=== PATIENT | male | born 1965 | race Caucasian/White ===

== ENCOUNTER → 2020-08-31 10:34 | Outpatient (BNVA) | payer MEDICAID, SELFPAY | PROVIDERS: Visit Provider Nurse Practitioner | DX: S82.852A Displaced trimalleolar fracture of left lower leg, initial encounter for closed fracture (principal); X58.XXXA Exposure to other specified factors, initial encounter; Z98.890 Other specified postprocedural states | CPT/HCPCS: 73610 ==

== ENCOUNTER → 2020-09-06 11:53 | Outpatient (BNVA) | payer MEDICAID, SELFPAY | PROVIDERS: Visit Provider Specialist | DX: S82.899A Other fracture of unspecified lower leg, initial encounter for closed fracture (principal); S82.892A Other fracture of left lower leg, initial encounter for closed fracture; S82.832A Other fracture of upper and lower end of left fibula, initial encounter for closed fracture | CPT/HCPCS: 73610; 87635 ==

== ENCOUNTER 2020-09-07 06:03 | Day surgery (SDC) | payer MEDICAID, SELFPAY ==
[2020-09-06 17:47] VITALS: BMI 30.8
[2020-09-07] VITALS (14 sets, daily range): BP systolic 132–188; BP diastolic 65–113; PULSE 67–99; RESP 12–20; TEMP 36–36.2; O2SAT 93–99
--- NOTE | 2020-09-07 | XR_ITS ---
WS: [id number] C-ARM RADIOGRAPHS LEFT ANKLE; 4 IMAGES HISTORY: ORIF Left Ankle COMPARISON: 09/06/2020 Intraoperative plate and screw fixation distal fibular fracture in good position and alignment. Ankle mortise appears normal on the single AP projection. XR/XR ankle LT 2V 46518 IMPRESSION: Intraoperative plate and screw fixation distal fibular fracture.
--- NOTE | 2020-09-07 | SCC_ITS ---
Procedure Done: Open reduction internal fixation left trimalleolar ankle fracture 67.8 seconds of fluoroscopic guidance, for a cumulative dose of 2.01 mGy, was provided to Dr. Burger by the radiology department. C-arm images of the LEFT ankle were saved for the patient's permanent record. [facility]
[2020-09-07] MEDS: CELEcoxib 200 mg Capsule 400 MG PO (06:20)
--- NOTE | 2020-09-07 06:32 | ANES.PREANE2 ---
Pre-Anesthetic Assessment Pre-Anesthetic Assessment: Height/Weight: Height 1.78 m Weight 97.522 kg Temp Pulse Resp BP Pulse Ox 96.8 F L 99 18 188/113 99 09/07/20 06:19 09/07/20 06:19 09/07/20 06:19 09/07/20 06:19 09/07/20 06:19 Preop Diagnosis: Left trimalleolar ankle fracture Proposed Procedure: Operation Date: 09/07/20 08:00 Proposed Procedures p ORIF trimallelor fracture left Ankle 36214 S82.853A(Left) - Alicia Burger MD Familial anesthetic complications: None Was Beta Moreno taken within 24 hours: N/A Last intake: Intake Last Liquid Date 09/06/20 Last Liquid Time 18:00 Last Solid Date 09/06/20 Last Solid Time 18:00 Social: Social History: No alcohol and No tobacco Exam: Pre-Anes Outpt Exam: alert, oriented x 3, clear to auscultation bilaterally and regular rate & rhythm Airway: Cervical ROM: WNL MP: 4 Dentition: Other (missing) Anesthetic Plan: ASA status: 1 Anesthesia: General and Regional (specify below) Risk of > 500 ml blood loss (7ml/kg in children): No PFSH Anesthesia PFSH: Social History Smoking and tobacco status: former smoker Data Anesthesia Cardiac Studies: No Data to Display
[2020-09-07] MEDS: sodium chloride 0.9% 1,000 ML 30 ML IV (06:40)
[2020-09-07 06:51] LABS: Basophils # 0.1 10^3/uL (0.0-0.1); Eosinophils # 0.2 10^3/uL (0.0-0.8); Eosinophils % 2.2 %; Hematocrit 45.8 % (42.0-52.0); Hemoglobin 14.8 g/dL (11.7-16.6); Lymphocytes % 25.3 %; Mean Corpuscular HGB Conc 32.3 g/dL (30.0-36.0); Mean Corpuscular Hemoglobin 28.8 pg (28.0-34.0); Mean Corpuscular Volume 89.1 fL (80-94); Mean Platelet Volume 8.3 fL (7.4-10.4); Monocytes # 0.6 10^3/uL (0.2-0.9); Monocytes % 6.8 %; Neutrophils # 5.19 10^3/uL (1.8-7.7); Neutrophils % 64.3 %; Nucleated Red Blood Cells % 0 %; Platelet Count 236 10^3/cmm (130-400); Red Blood Count 5.14 10^6/uL (4.1-5.3); White Blood Count 8.1 10^3/uL (4.0-10.0)
--- NOTE | 2020-09-07 06:54 | W.PM.OPSUD ---
Surgery/Procedure H&P Update DATE OF PROCEDURE: September 07, 2020 DATE H&P PERFORMED: 09/06/20 H&P UPDATE INFORMATION: I have reviewed H&P completed within last 30 days, I have examined patient prior to procedure, No changes to prior documentation and H&P is in [facility] [facility] on date indicated PREOP DIAGNOSIS: Left trimalleolar ankle fracture PLANNED PROCEDURE: Operation Date: 09/07/20 08:00 Proposed Procedures p ORIF trimallelor fracture left Ankle 18963 S82.853A(Left) - Alicia Burger MD Related Problem List Diagnoses (1) Trimalleolar fracture of left ankle: Qualifiers: Encounter type: initial encounter Fracture type: closed Qualified Code(s): S82.852A - Displaced trimalleolar fracture of left lower leg, initial encounter for closed fracture
[2020-09-07 07:10] LABS: Alanine Aminotransferase 25 U/L (0-41); Albumin Level 4.5 g/dL (3.5-5.2); Alkaline Phosphatase 72 IU/L (40-130); Anion Gap 15.5 (5-19); Aspartate Amino Transferase 18 U/L (0-40); Blood Urea Nitrogen 14 mg/dL (6-20); Calcium 9.7 mg/dL (8.5-10.5); Carbon Dioxide 25 mmol/L (22-29); Chloride 99 mmol/L (98-107); Creatinine Clr Calc Pharmacy 96.6103; Globulin 3.1 g/dL (1.3-4.6); Glomerular Filtration Rate 77.3 mL/min (90-130); Glucose 134 mg/dL (65-115); Osmolality Calculated 282 mOsm/kg (285-295); Potassium 4.5 mmol/L (3.5-5.1); Sodium 135 mmol/L (136-145); Total Bilirubin 0.5 mg/dL (0.15-1.2); Total Protein 7.6 g/dL (6.6-8.7)
[2020-09-07] MEDS: midazolam 1 mg/mL INJ 5 ML 5 MG IVP (07:20)
[2020-09-07] MEDS: fentaNYL 50 mcg/mL INJ 2mL 100 MCG IVP (07:20)
--- NOTE | 2020-09-07 07:28 | ANES.PROC ---
Anesthesia Procedures Procedure/Date: 09/07/20 Nerve Block ^: Nerve Block 1: Main Anesthesia: general anesthesia Time Out Performed: Yes Consent: requested by attending/covering physician, from patient, risks and benefits reviewed, patient agrees to proceed and emergency procedure Nerve block location: popliteal (L) Anesthesia monitors applied: pulse oximetry, EKG, BP cuff and oxygen Nerve block position: semi sitting Anesthetic Used: ropivicaine 0.5% and with decadron (4 mg) Amount of anesthesia used (mL): 30 Ultrasound used to: recognize landmarks Nerve Stimulator Used?: No Interscalene/Femoral BLK: 4 stimuplex 21 g needle used for position and inplane approach, visualize local anesthetic spread and no vascular puncture identified Injection: neg aspiration of heme and paresthesia +/- Patient Tolerated Procedure: well and no complications Complications: none
[2020-09-07 07:43] LABS: Glucose Urine UA Norm (Normal); Ketones Urine Negative (Negative); Protein Urine Neg (Negative); Specific Gravity, Urine 1.015 (1.005-1.030); Urine Appearance Clear (CLEAR); Urine Color Yellow (Yellow)
[2020-09-07 07:44] LABS: Add Urine Culture? No; Add Urine Microscopic? YES; Bacteria Urine TRACE /hpf; Bilirubin Urine Neg (Negative); Blood Urine 2+ (Negative); Leukocyte Esterase Urine Negative (Negative); Mucus Urine 1+ /hpf; Nitrate Urine Negative (Negative); RBC Urine 0-4 /hpf (0-2); Squamous Epithelial Cell Urine 0-4 /hpf (0-5); Urobilinogen Urine Norm (Negative)
[2020-09-07] MEDS: vancomycin 1,000 MG in sodium chloride 0.9% 250 ML 250 MG IV (08:24)
[2020-09-07] MEDS: ceFAZolin 1,000 mg SDV 1000 MG IRRIGATION (09:26)
--- NOTE | 2020-09-07 09:59 | P.OP_ITS ---
Operative Report Date of procedure: September 07, 2020 Pre-op Diagnosis: Left trimalleolar ankle fracture Post-op diagnosis: same Procedure Done: Open reduction internal fixation left trimalleolar ankle fracture utilizing a 4 hole Anyi distal fibular plate with a combination of locking and nonlocking screws Specimens removed/disposition: None Pathology: none sent Surgeon: Alicia Burger [employer]: [facility] OR technicians Anesthesia: General (LMA, ASA 1) Estimated blood loss (mL): 5 Tourniquet time (min): 47 Tourniquet time: At 250 mmHg IV fluids (mL): 500 Urine output (mL): 0 Urine output: No Méndez Complications: None Condition: stable Disposition: PACU (Then discharge to home with family) Brief History: This 55-year-old gentleman was in his usual state of health when he fell while pulling a T post. He twisted his ankle suffering the above injury. The medial aspect of the injury involves primarily tendinous injury. There is no obvious medial malleolar fracture, but there is certainly mortise widening. Additionally, there is a small nondisplaced posterior malleolar fragment indicating the instability of this fracture. Risks and complications of surgical and nonsurgical treatment of this fracture were discussed with the patient. He agreed to proceed with operative intervention. Procedure: Patient was seen in the preoperative holding area and leg was marked. Patient was brought to the operating theater and placed on the operating room table. After undergoing adequate general anesthesia per LMA, the patient's left lower extremity was prepped and draped in usual fashion utilizing DuraPrep. The leg was draped free. Fluoroscopy was used throughout the surgical procedure. We did have a tourniquet high on the left lower extremity. This was elevated to 250 mmHg and total tourniquet time was 47 minutes. Tourniquet elevation followed exsanguination of the leg. A surgical pause was performed. At the time of the surgical pause we identified the site and side of surgery as well as the patient's identity and availability of equipment. We also confirmed appropriate administration of IV antibiotics. Following the above, an incision was made centering over the patient's lateral malleolar fracture. The incision was continued proximally distally as necessary to allow access to the fracture site. We were able to reduce the fracture anatomically. This was held with a clamp while we chose a plate to appropriately fit the patient's left distal fibula. The Anyi 4-hole distal fibular plate was attached with standard technique. We used a combination of locking as well as nonlocking screws. Once the plate was appropriately attached, we irrigated the wound. We then closed the wound with 0 Vicryl in the fascial tissues, 2-0 Monocryl in the subcutaneous tissues, and the skin was closed with a running 3-0 Monocryl. After the fracture had been addressed, the ankle was stressed as it had been preoperatively. There no longer was opening of the medial aspect of the ankle mortise. Therefore, we elected not to place a syndesmotic tight rope fixation device. Sterile dressing was placed consisting of Exofin, Steri-Strips, 4 x 4's, sterile soft roll and an Kevin wrap. The patient was placed in a Cam Walker boot and is to remain nonweightbearing. The procedure was well tolerated without complication. Tourniquet time was 47 minutes at 250 mmHg. The patient will be discharged home to follow-up in my office as scheduled. Associated Problem List Diagnoses (1) Trimalleolar fracture of left ankle: Qualifiers: Encounter type: initial encounter Fracture type: closed Qualified Code(s): S82.852A - Displaced trimalleolar fracture of left lower leg, initial encounter for closed fracture
[2020-09-07] MEDS: ondansetron 2 mg/ML SDV 2 mL 4 MG IVP ×2 (10:02→10:14)
[2020-09-07] MEDS: metoclopramide 5 mg/mL SDV 2 mL 10 MG IVP (10:27)
[2020-09-07] MEDS: promethazine 25 mg/mL SDV 1 mL 12.5 MG IM (10:53)
--- NOTE | 2020-09-07 12:20 | ANE.PACU2 ---
Inpatient post-anesthesia follow up: Airway intact: Yes Vital signs: Temperature 97.2 F Pulse Rate 72 Respiratory Rate 18 Blood Pressure 146/90 Pulse Oximetry 97 Oxygen Delivery Me thod Room Air Oxygen Flow Rate 2 Fraction of Inspir ed Oxygen Hydration adequate: Yes Nausea and vomiting: Yes (phenergan IM) Pain level: 1 Mental status: Baseline
== END 2020-09-07 12:24 | disposition home or self-care (01) ==
PROVIDERS: Visit Provider Specialist
PROC: (CPT 27822; principal; 2020-09-07 08:00)
DX: S82.852A Displaced trimalleolar fracture of left lower leg, initial encounter for closed fracture (principal); X50.1XXA Overexertion from prolonged static or awkward postures, initial encounter; Z87.891 Personal history of nicotine dependence
CPT/HCPCS: 27822; 12345; 36415; 64450; 73600; 76000; 76942; 80053; 81001; 85025; 96365; 96372; 96374; 96375; C1713; J0131; J0690; J1100; J2250; J2405; J2550; J2704; J2765; J2795; J3010; J3370; J3490; J7030; J7050

== ENCOUNTER → 2020-09-26 11:47 | Outpatient (BNVA) | payer MEDICAID, SELFPAY | PROVIDERS: Visit Provider Specialist | DX: S82.852A Displaced trimalleolar fracture of left lower leg, initial encounter for closed fracture (principal) | CPT/HCPCS: 73610 ==

== ENCOUNTER → 2020-10-10 10:27 | Outpatient (BNVA) | payer MEDICAID, SELFPAY | PROVIDERS: Visit Provider Specialist | DX: S82.852A Displaced trimalleolar fracture of left lower leg, initial encounter for closed fracture (principal) | CPT/HCPCS: 73610 ==

== ENCOUNTER → 2020-10-31 16:11 | Outpatient (BNVA) | payer MEDICAID, SELFPAY | PROVIDERS: Visit Provider Specialist | DX: S82.852A Displaced trimalleolar fracture of left lower leg, initial encounter for closed fracture (principal) | CPT/HCPCS: 73610 ==